=== PATIENT | male | born 1980 | race African-American/Black ===

== ENCOUNTER 2017-05-23 07:08 | Emergency (ER) | payer SELFPAY ==
[2017-05-23] MEDS ORDERED: Dexamethasone 10 MG/ML VIAL ONE (07:50)
== END 2017-05-23 08:10 | disposition home or self-care (01) ==
LOC: ERS 07:08
DX: L50.9 Urticaria, unspecified (principal); I10 Essential (primary) hypertension; F32.9 Major depressive disorder, single episode, unspecified; F17.210 Nicotine dependence, cigarettes, uncomplicated
CPT/HCPCS: 96372; J1100

== ENCOUNTER 2017-06-01 10:04 | Emergency (ER) | payer SELFPAY ==
[2017-06-01] MEDS ORDERED: EPINEPHrine 1 MG/ML AMP ONE (10:45)
[2017-06-01] MEDS ORDERED: diphenhydrAMINE 25 MG CAP ONE (10:45)
[2017-06-01] MEDS ORDERED: methylPREDNISolone Sod Succ/PF 125 MG/2 ML VIAL ONE (10:45)
[2017-06-01] MEDS ORDERED: Famotidine/PF 20 mg/2ml Vial ONE (10:45)
[2017-06-01] MEDS ORDERED: diphenhydrAMINE 50 MG/ML VIAL ONE (10:46)
== END 2017-06-01 12:13 | disposition home or self-care (01) ==
LOC: ERS 10:04
DX: L23.9 Allergic contact dermatitis, unspecified cause (principal); I10 Essential (primary) hypertension; F32.9 Major depressive disorder, single episode, unspecified; F17.210 Nicotine dependence, cigarettes, uncomplicated; Z71.6 Tobacco abuse counseling; Z79.52 Long term (current) use of systemic steroids
CPT/HCPCS: 96372; 96374; 96375; 99406; J0171; J1200; J2930; S0028

== ENCOUNTER 2017-06-25 13:36 | Emergency (ER) | payer SELFPAY ==
[2017-06-25] MEDS ORDERED: Dexamethasone 4 mg/ml Vial ONE (17:14)
== END 2017-06-25 17:01 | disposition home or self-care (01) ==
LOC: ERS 13:36
DX: L23.9 Allergic contact dermatitis, unspecified cause (principal); I10 Essential (primary) hypertension; F32.9 Major depressive disorder, single episode, unspecified; F17.210 Nicotine dependence, cigarettes, uncomplicated; Z71.6 Tobacco abuse counseling
CPT/HCPCS: 99406; J1100